=== PATIENT | female | born 1975 | race Two or more races ===

== ENCOUNTER 2022-10-18 15:56 | Emergency (ER) | payer OTHER ==
[~2022-10-18] VITALS: Ht 170.2 cm; Wt 60.8 kg
== END 2022-10-18 21:21 | disposition home or self-care (01) ==
LOC: ER 15:56
DX: M54.2 Cervicalgia (principal); V43.52XA Car driver injured in collision with other type car in traffic accident, initial encounter; Y93.89 Activity, other specified; Y92.413 State road as the place of occurrence of the external cause; M25.571 Pain in right ankle and joints of right foot; I10 Essential (primary) hypertension